=== PATIENT | female | born 2000 | race Caucasian/White ===

== ENCOUNTER → 2023-02-10 | Outpatient (CLI) | payer SELFPAY ==
[2023-02-10 15:05] LABS: hCG Titer Quant., Serum 48533 mIU/mL (1-3)
== END | disposition home or self-care (01) ==
PROVIDERS: PCP Family Medicine; Referring Provider Registered Nurse; Visit Provider Registered Nurse
DX: O26.859 Spotting complicating pregnancy, unspecified trimester (principal); Z3A.00 Weeks of gestation of pregnancy not specified
CPT/HCPCS: 36415; 84702; 86850; 86900; 86901

== ENCOUNTER → 2023-02-12 | Outpatient (CLI) | payer SELFPAY ==
--- OUTSIDE RECORDS SUMMARY | 2023-02-12 15:49 | XMS RPT_ITS | CCD ---
Author Name Unknown Address [address] [place] [address] Organization [facility] Care Team Providers Care Tree Pruner Name Role Phone FABRIZIO PAGE Admitting Unavailable FABRIZIO PAGE Attending Unavailable CANDACE MURO MD Referring Unavailable FABRIZIO PAGE Primary Care Unavailable CANDACE MURO MD Consulting Unavailable PROVIDER, UNKNOWN Consulting Unavailable PROVIDER, UNKNOWN Consulting Unavailable PROVIDER, UNKNOWN Consulting Unavailable HARVINDER GUPTA Admitting Unavailable HARVINDER GUPTA Attending Unavailable HARVINDER GUPTA Primary Care Unavailable Problems Problem Classification Problem Date Documented Da te Episodic/Chronic Urinary tract infections (1 source) Urinary tract infection, site not specified; Translations: [Urinary tract infection, site not specified] Onset: 12-05-2019 Episodic Results Test Name Value Interpretation Reference Range Facil ity Encounters Encounter Date Encounter Type Care Provider Facility Start: 12-05-2019 End: 12-05-2019 Patient encounter procedure HARVINDER BURRIS CANDY [facility] Start: 09-10-2018 End: 09-10-2018 Emergency department patient visit FABRIZIO PAGE [facility] Procedures Date Procedure Procedure Detail Performing Clinician Start: 09-10-2018 Urinalysis FABRIZIO PALMERMARIA ISABEL Payers Date Payer Category Payer Unknown [id number] Unknown [id number] Summary Purpose Family History No Family History Records FoundNo Family History Records Found Advance Directives No Advanced Directives Records FoundNo Advanced Directives Records Found Additional Source Comments INFORMATION SOURCE (unrecogn ized section and content) DATE CREATED AUTHOR AUTHOR'S HARSHIZ ATION 12/10/2019 [facility] FOR RECORDS PERTAINING TO PATIENTS WHO ARE OR HAVE BEEN ENROLLED IN A CHEMICAL DEPENDENCY/SUBSTANCEABUSE PROGRAM, SOME INFORMATION MAY BE OMITTED. This clinical summary was aggregated from multiple sources. Caution should be exercised in using it in the provision of clinical care. This summary normalizes information from multiple sources, and as a consequence, information in this document may materially change the coding, format and clinical context of patient data. In addition, data may be omitted in some cases. CLINICAL DECISIONS SHOULD BE BASED ON THE PRIMARY CLINICAL RECORDS. [employer] [facility]. provides no warranty or guarantee of the accuracy or completeness of information in this document.
== END | disposition home or self-care (01) ==
LOC: LAB 15:47
PROVIDERS: PCP Family Medicine; Referring Provider Registered Nurse; Visit Provider Registered Nurse
DX: O26.859 Spotting complicating pregnancy, unspecified trimester (principal); Z3A.00 Weeks of gestation of pregnancy not specified
CPT/HCPCS: 36415; 84702

== ENCOUNTER 2023-02-14 17:45 | Outpatient (CLI) | payer SELFPAY ==
--- NOTE | 2023-02-14 18:01 | OB.TRI.PN ---
Progress Notes Date of Service: 02/14/23 Progress Note: at 7.5 weeks for IM injection of Rhogam for spotting in early . Charges/Coding Procedures Urinary/Genital [id number]: No Charge Multi Select Codes Urinary/Genital Urinary/Genital CPT Codes: No Charge Assessment & Plan (1) Rh negative status during : COMMENT: Rhogam 02/14/23 for early bleeding, @ 28 weeks & PRN for bleeding (2) Supervision of high-risk : COMMENT: , YAAKOV 09/28/23, [place] (3) : COMMENT: discussed genetic & carrier testing (4) PCOS (polycystic ovarian syndrome): (5) Spotting in early :
[2023-02-14 18:09] VITALS: TEMP 36.6; BMI 27.6
--- OUTSIDE RECORDS SUMMARY | 2023-02-14 18:42 | XMS RPT_ITS | CCD ---
Author Name Unknown Address [address] [place] [address] Organization [facility] Care Team Providers Care Venereal Disease Investigator Name Role Phone FABRIZIO PAGE Admitting Unavailable [...] 12-05-2019 Patient encounter procedure HARVINDER BURRIS CANDY [facility] Start: 09-10-2018 End: 09-10-2018 Emergency department patient visit FABRIZIO PAGE [facility] Procedures Date Procedure Procedure Detail Performing Clinician Start: 09-10-2018 Urinalysis FABRIZIO PALMERMARIA ISABEL Payers Date Payer Category Payer Unknown [id number] Unknown [id number] Summary Purpose Family History No Family History Records FoundNo Family History Records Found Advance Directives No Advanced Directives Records FoundNo Advanced Directives Records Found Additional Source Comments INFORMATION SOURCE (unrecogn ized section and content) DATE CREATED AUTHOR AUTHOR'S HARSHIZ ATION 12/10/2019 [facility] FOR RECORDS PERTAINING TO PATIENTS WHO [...] BE BASED ON THE PRIMARY CLINICAL RECORDS. [employer] [facility]. provides no warranty or guarantee of the accuracy or completeness of information in this document.
[2023-02-14] MEDS: Rho(D) Immune Globulin 300 MCG (1500 Unit) Syringe IV (19:45)
== END 2023-02-14 19:50 | disposition home or self-care (01) ==
LOC: WPOUT 17:51 → WP 17:52
PROVIDERS: PCP Family Medicine; Referring Provider Advanced Practice Midwife; Visit Provider Advanced Practice Midwife
DX: O26.853 Spotting complicating pregnancy, third trimester (principal); Z3A.28 28 weeks gestation of pregnancy; O26.893 Other specified pregnancy related conditions, third trimester; O99.283 Endocrine, nutritional and metabolic diseases complicating pregnancy, third trimester; E28.2 Polycystic ovarian syndrome
CPT/HCPCS: 96374; 36415; 86850; 86900; 86901; 90384; 96372; 99221; G0378; J2790; J2791

== ENCOUNTER → 2023-02-24 | Outpatient (CLI) | payer SELFPAY ==
[2023-02-27 20:08] LABS: Chlamydia By Nucleic Acid AMP Negative (Negative); Gonococcus By Nucleic Acid AMP Negative (Negative)
== END | disposition home or self-care (01) ==
LOC: LABSPEC 14:16
PROVIDERS: PCP Family Medicine; Referring Provider Advanced Practice Midwife; Visit Provider Advanced Practice Midwife
DX: Z34.90 Encounter for supervision of normal pregnancy, unspecified, unspecified trimester (principal)
CPT/HCPCS: 87086; 87491; 87591

== ENCOUNTER → 2023-03-21 | Outpatient (CLI) | payer SELFPAY ==
[2023-03-21 10:21] LABS: Absolute Lymphocyte Count 1.44 X10^3/uL (0.83-4.51); Absolute Neutrophil Count 5.5 X10^3/uL (2.0-7.7); Basophil# 0.02 X10^3/uL; Basophil% 0.3 % (0-1); Eosinophil# 0.03 X10^3/uL; Eosinophils% 0.4 % (0-5); Hematocrit 35.4 % (37-47); Hemoglobin 12.4 g/dL (12.0-15.0); Lymphocyte # 1.44 X10^3/ul (0.83-4.51); Lymphocyte % 19.4 % (19-41); Mean Corpuscular Hgb 30.9 pg (27.0-32.0); Mean Corpuscular Volume 88.3 fL (81-99); Mean Platelet Vol. 9.4 fl (6.2-12.0); Monocyte# 0.41 X10^3/uL; Monocyte% 5.5 % (0-10); NRBC Flagged by Analyzer 0 % (0-5); Neutrophil # 5.49 X10^3/uL (2.7-7.7); Neutrophil % 73.9 % (47-70); Platelet Count 225 K/mm3 (150-450); RBC Distribution Width CV 12.5 % (11.6-14.6); RBC Distribution Width SD 39.8 fl (35.1-43.9); Red Blood Count 4.01 M/mm3 (4.2-5.4); White Blood Count 7.4 K/mm3 (4.4-11.0)
--- OUTSIDE RECORDS SUMMARY | 2023-03-21 10:50 | XMS RPT_ITS | CCD ---
Author Name Unknown Address [address] [place] [address] Organization [facility] Care Team Providers Care Particle Board Supervisor Name Role Phone FABRIZIO PAGE Admitting Unavailable [...] 12-05-2019 Patient encounter procedure HARVINDER BURRIS CANDY [facility] Start: 09-10-2018 End: 09-10-2018 Emergency department patient visit FABRIZIO PAGE [facility] Procedures Date Procedure Procedure Detail Performing Clinician Start: 09-10-2018 Urinalysis FABRIZIO PALMERMARIA ISABEL Payers Date Payer Category Payer Unknown [id number] Unknown [id number] Summary Purpose Family History No Family History Records FoundNo Family History Records Found Advance Directives No Advanced Directives Records FoundNo Advanced Directives Records Found Additional Source Comments INFORMATION SOURCE (unrecogn ized section and content) DATE CREATED AUTHOR AUTHOR'S HARSHIZ ATION 12/10/2019 [facility] FOR RECORDS PERTAINING TO PATIENTS WHO ARE [...] BE BASED ON THE PRIMARY CLINICAL RECORDS. [employer] [facility]. provides no warranty or guarantee of the accuracy or completeness of information in this document.
[2023-03-21 11:53] LABS: HIV - WCH Non-Reactive (Nonreactive); Hepatitis B Surface Antigen Non-Reactive (Nonreactive); Hepatitis C Antibody Non-Reactive (Nonreactive); Rubella IgG Reactive (Nonreactive); Syphilis Antibodies Non-reactive
== END | disposition home or self-care (01) ==
PROVIDERS: PCP Family Medicine; Referring Provider Advanced Practice Midwife; Visit Provider Advanced Practice Midwife
DX: O36.0190 Maternal care for anti-D [Rh] antibodies, unspecified trimester, not applicable or unspecified (principal); O26.899 Other specified pregnancy related conditions, unspecified trimester; Z67.91 Unspecified blood type, Rh negative; Z3A.00 Weeks of gestation of pregnancy not specified
CPT/HCPCS: 36415; 85025; 86703; 86762; 86780; 86803; 86850; 86870; 86900; 86901; 87340

== ENCOUNTER → 2023-07-06 | Outpatient (CLI) | payer SELFPAY ==
[2023-07-06 11:20] LABS: Glucose Challenge Gest 1H 50g 94 mg/dL (70-140)
== END | disposition home or self-care (01) ==
LOC: PAVLAB 10:31
PROVIDERS: PCP Family Medicine; Referring Provider Registered Nurse; Visit Provider Registered Nurse
DX: Z34.90 Encounter for supervision of normal pregnancy, unspecified, unspecified trimester (principal)
CPT/HCPCS: 36415; 82950

== ENCOUNTER → 2023-11-03 | Outpatient (CLI) | payer SELFPAY ==
[2023-11-09 13:02] LABS: HPV Reflexed? NOT INDICATED
== END | disposition home or self-care (01) ==
LOC: LABSPEC 15:01
PROVIDERS: PCP Family Medicine; Referring Provider Obstetrics & Gynecology; Visit Provider Obstetrics & Gynecology
DX: Z12.4 Encounter for screening for malignant neoplasm of cervix (principal)
CPT/HCPCS: 88175; G0145